=== PATIENT | female | born 1945 | race Caucasian/White ===

== ENCOUNTER 2023-11-12 01:22 | Emergency (ER) | payer MEDICARE, SELFPAY ==
--- NOTE | 2023-11-12 04:32 | DOWNTIME ---
There was a [employer] Downtime on 11/12/2023 from 0111 to 11/12/2023 at 0405. Downtime documentation of patient's care, including medication administrations, has been reconciled in the electronic record per guidelines. Refer to the
patient's paper chart under the miscellaneous tab to see printed paper medication records and downtime forms.
--- NOTE | 2023-11-12 04:34 | ED.GENMED ---
History of Present Illness
General
Chief Complaint: Chest Pain
Source: patient and spouse
Exam Limitations: none
Nursing documentation reviewed up to this point in time: agreed with
History of Present Illness
History of Present Illness:
79-year-old female with past medical history as documented presents to the emergency room for evaluation of chest pain. Patient reports onset of symptoms this evening and have been constant since that time. She reports 'pounding' pain lasts chest
that radiates under the left breast. No clear triggering or relieving factors noted. She denies any associated shortness of breath. Denies any nausea or vomiting. Denies any diaphoresis. No syncope or dizziness. Denies any recent illness. She
has had some swelling in her legs recently took a dose of her as needed Lasix this morning with improvement. She says that she has noticed that her blood pressure has been significantly elevated this evening as high as 200 systolic. For this
reason she took two extra doses of her propranolol 10 mg tablets (normally takes 10 mg twice daily, soraida took her normal dose +2 additional 10 mg tablets). She says that this did not significantly improve her blood pressure because she was
having some chest pain decided to come for evaluation. She follows with Dr. Mao for cardiology.
Past History
Past History
ED Past Medical History: HTN, Other (Sjogren's syndrome) and Other (chronic pain)
ED Past Surgical History: Appendectomy, Gynecological, Orthopedic and Urological
Social History
Tobacco: Non-smoker
Alcohol: None
Drug: None
Personal:
Living: with family
Review of Systems
Review of Systems
All Other Systems: ROS reviewed and negative except as documented in HPI and ROS
Constitutional: Denies fever or chills
EENT: Denies sore throat or runny nose
Respiratory: Denies cough or trouble breathing
Cardiac: Reports chest pain; Denies diaphoresis or palpitations
ABD/GI: Denies abdominal pain, nausea, vomiting or diarrhea
: Denies flank pain
Musculoskeletal: Denies neck pain or back pain
Neurological: Denies headache, weakness or numbness
Phy Exam
Physical Exam
Physical Exam:
General: Awake, alert, oriented x3; no acute distress
Head: Normocephalic, atraumatic
Eyes: Conjunctiva normal, sclera anicteric
Throat: Airway intact, handling secretions
Neck: Trachea midline, supple without meningismus
Lungs: Clear to auscultation bilaterally, no wheezing, rales, rhonchi
Heart: Regular rate and rhythm, no murmurs, gallops, or rubs
Abd: Soft, non distended, nontender
Neuro: Cranial nerves grossly intact, speech fluid
Skin: no rash
Extremities: No edema in extremities, equal pulses in all extremities
Scores
Heart Failure Risk
Heart Failure Risk Score: Not Applicable
Heart Score for Chest Pain Patients
STEMI patient?: No
History: Slightly or Non-Suspicious
ECG: Normal
Age: >/= 65 years
Risk Factors: >/= 3 Risk Factors or History of CAD
Troponin: </= Normal Limit
Heart Score for Chest Pain Patients: 4
Heart Score Risk: 20.3% MACE over next 6 weeks
Withdrawal Assessment of Alcohol
Withdrawal Assessment Completed?: Not applicable
Course
Orders/Labs/Results
Orders:
Orders
11/12/23 02:00
Complete Blood Count/With Diff Urgent
Comprehensive Metabolic Panel Urgent
NT-proBNP Urgent
Troponin I Urgent
11/12/23 04:38
Electrocardiogram (*1) Urgent
Reason for Study: Chest Pain
EKG- Treatment ONCE
11/12/23 05:08
CR Chest - 2 Views Urgent
Comment:
Reason For Exam: cp
11/12/23 05:12
Troponin I Urgent
Abnormal Lab Results
11/12/23
02:00
Absolute Neuts (auto) 7.2 H 10^3/uL
(1.4-6.5)
Lymphocytes % 20.1 L %
(20.5-51.1)
Glucose 109 H mg/dl
(70-99)
11/12/23 02:00
11/12/23 02:00
Vital Signs
Initial and Last Documented VS:
Initial Vital Signs
Pulse Resp BP Pulse Ox
55 16 144/72 97
11/12/23 06:02 11/12/23 06:02 11/12/23 06:02 11/12/23 06:02
Last Documented Vital Signs
Pulse Resp BP Pulse Ox
55 16 144/72 97
11/12/23 06:02 11/12/23 06:02 11/12/23 06:02 11/12/23 06:02
MDM/Problems Addressed
Differential Diagnosis Includes:
ACS, costochondritis, GERD, pericarditis, anxiety; clinical picture not consistent with PE or acute aortic syndrome in my judgment no further testing indicated for these diagnoses
MDM/Problems Addressed:
79-year-old female presents for evaluation of chest pain for the past few hours with associated high blood pressure. Vital signs significant for hypertension here otherwise normal. Exam as above. EKG shows no STEMI. Plan to place an IV check
labs including a CBC and a CMP, troponin. Will check chest x-ray. Will provide some nitroglycerin for hypertension and evaluate for improvement of her chest pain. Will monitor closely reassess after the above.
Initial labs reviewed: CBC and CMP unremarkable, troponin negative x 1. Will continue to monitor pending repeat troponin. Blood pressure improved with nitroglycerin, chest pain essentially unchanged.
Repeat troponin negative, chest x-ray reviewed by me no acute disease. Blood pressure normalized, patient well-appearing symptoms improved. No clear indication for admission at this point, I think patient is stable for discharge can follow-up with
her primary doctor as an outpatient for blood pressure recheck. She feels very comfortable this plan. Spoke about return precautions all questions answered.
Acute Exacerbation and/or Progression of Chronic Illness:
Acute exacerbation of chronic hypertension managed with nitroglycerin with normalization of blood pressure
Acute Exacerbation and/or Progression of Chronic Illness: HTN
*Radiology
Radiology exam reviewed: preliminary read by ED provider
*Pulse Oximetry
Patient hypoxic: no
*EKG
Interpreted by ED Provider?: Yes
Heart Rate: 70
Rate: normal
Rhythm: sinus
[place]: normal axis
Interval: normal interval
QRS Pattern: normal QRS
Ischemia: no ischemia
*Critical Care Note
Total Time (30-74mins, 75-104mins- exclusive of procedures): Not Applicable
Data Reviewed
Review of Other/Old Records Reveals: Labs and Records
Source: patient, records and spouse
ED Attending Note
-
Portions of this chart may have been created with voice recognition software.� Occasional wrong word or��sound alike� substitutions may have occurred due to the inherent limitations of voice recognition software.
Discharge Plan
Departure
Patient Disposition: Home (Routine Discharge)
Date of Disposition: 11/12/23
Time of Disposition: 06:25
Patient with high blood pressure during this ER visit?: No
Discharge Problem:
Chest pain, Hypertension
Instructions: Chest Pain CBC Follow Up, BLOOD PRESSURE
Prescriptions:
No Action
zolpidem 10 MG tablet
10 mg PO HS
Patient Comments:
03/21/2021: last filled 03/06/21, 30 tabs for 30 days from [facility]
propranolol 10 MG tablet
10 mg PO DAILYPRN PRN (Reason: tachycardia)
verapamil 120 MG tablet extended release
120 mg PO DAILY
simvastatin 10 MG tablet
10 mg PO HS
hydromorphone 2 MG tablet
2 mg PO BID
Patient Comments:
03/21/2021: last filled 02/28/21, 90 tabs for 15 days from [facility]
ascorbic acid (vitamin C) [Vitamin C] 500 MG tablet
1,000 mg PO DAILY
furosemide 20 MG tablet
20 mg PO .EVERYOTHERDAY PRN (Reason: leg swelling)
cholecalciferol (vitamin D3) 1,000 UNITS tablet
3,000 units PO DAILY
oxycodone [OxyContin] 10 MG tablet,oral only,ext.rel.12 hr
10 mg PO BID
Patient Comments:
03/21/2021: last filled 02/27/21, 90 tabs for 30 days from [facility]
cyanocobalamin (vitamin B-12) 1,000 MCG tablet
2,000 mcg PO DAILY
lorazepam 1 MG tablet
0.5 - 1 mg PO PRN PRN (Reason: anxiety)
Patient Comments:
03/21/2021: last filled 12/19/20, 60 tabs for 20 days from [facility]
aspirin 81 MG tablet,chewable
81 mg PO DAILY
lisinopril 20 MG tablet
20 mg PO DAILY
Synthroid
10 mcg PO DAILY
valacyclovir 500 mg Tablet
500 mg PO BID PRN (Reason: shingles )
ondansetron 4 mg tablet,disintegrating
4 mg PO Q8H PRN (Reason: nausea and vomiting) Qty: 7 0RF
prednisone 20 mg tablet
40 mg PO DAILY 4 Days Qty: 8 0RF
prednisone 10 mg tablets,dose pack
See Rx Instructions .ROUTE .COMPLEX Qty: 21 0RF
Rx Instructions:
orally per package directions
Referrals:
Ortega Mao MD [Active] - Call in 1-3 days for appt
Magdalena Watson DO [Family Provider] -
Activity Restrictions/Additional Instructions:
Thank you for visiting the Emergency Department at [facility].
1. Please schedule a follow up appointment as directed. Call first thing tomorrow morning to make an appointment.
2. If indicated, please take your medications as instructed and indicated on discharge paperwork.
3. If any of your symptoms do not improve, or persist, or become more severe within 6-12 hours, please return to the emergency department for further care.
4. Please return to the emergency department if you develop a headache, neck pain/stiffness, fever greater than 100.4F, chest pain, shortness of breath, persistent nausea, vomiting, slurred speech, difficulty walking, numbness/tingling, weakness,
signs of infection or any other symptoms that are worrisome to you.
Please call [phone] if you have any questions.
[2023-11-12 05:23] LABS: % Basophils 0.5 % (0-2); % Eosinophils 1.6 % (0-6); % Immature Granulocytes 0.3 % (0-0.5); % Lymphocytes 20.1 % (20.5-51.1); % Neutrophils 71.5 % (42.2-75.2); Absolute Basophils 0.1 10^3/uL (0-0.2); Absolute Eosinophils 0.2 10^3/uL (0-0.7); Absolute Monocytes 0.6 10^3/uL (0.1-0.6); Absolute Neutrophils 7.2 10^3/uL (1.4-6.5); Hematocrit 43.7 % (37.0-47.0); Mean Corp Hgb Conc. 34.3 g/dL (33.0-37.0); Mean Corpuscular Hgb 30.5 pg (27.0-31.0); Mean Corpuscular Volume 88.8 fL (81.0-99.0); Mean Platelet Volume 10.3 fL (7.4-10.4); Nucleated Red Blood Cells % 0 %; Platelet Count 246 10^3/uL (130-400); Red Blood Cell Count 4.92 10^6/uL (4.20-5.40); Red Cell Dist. Width 13.2 % (11.5-14.5)
[2023-11-12 05:26] LABS: ALT (SGPT) 15 U/L (0-35); AST (SGOT) 29 U/L (14-36); Albumin 4.6 g/dl (3.5-5.0); Alkaline Phosphatase 93 U/L (38-126); Blood Urea Nitrogen 8 mg/dl (7-17); Calcium 9.6 mg/dl (8.4-10.2); Carbon Dioxide 27 mmol/L (22-30); Chloride 102 mmol/L (98-107); Glucose 109 mg/dl (70-99); NT-proBNP 103 pg/ml; Potassium 3.8 mmol/L (3.5-5.1); Sodium 136 mmol/L (135-145); Total Bilirubin 0.8 mg/dl (0.2-1.3); Total Protein 7.1 g/dl (6.3-8.2); Troponin I < 0.012 ng/ml; eGFR > 60.00
[2023-11-12 05:53] LABS: Troponin I < 0.012 ng/ml
[2023-11-12 06:02] VITALS: BP 144/72
== END 2023-11-12 06:36 | disposition home or self-care (01) ==
LOC: EMR 01:22
PROVIDERS: EMERGENCY PHYSICIAN Emergency Medicine; FAMILY PHYSICIAN Family Medicine
DX: R07.89 Other chest pain (principal); I10 Essential (primary) hypertension
CPT/HCPCS: 99285; 71046; 80053; 83880; 84484; 85025; 93005

== ENCOUNTER 2023-11-18 17:06 | Emergency (ER) | payer MEDICARE, SELFPAY ==
[2023-11-18 17:11] VITALS: BP 178/96
--- NOTE | 2023-11-18 19:26 | ED.GENMED ---
History of Present Illness
General
Chief Complaint: Breathing Problem
Source: patient
Time Seen by Provider: 11/18/23 19:08
Travel History
Have you had any contact with someone who has COVID-19?: No
Do you have any symptoms of coronavirus? Fever > 100 degrees, chills, cough, shortness of breath, sore throat, loss of taste or smell, muscle aches, or headache?: No
History of Present Illness
History of Present Illness:
78-year-old female presents to the emergency room complaining of shortness of breath. Patient states she went to her family doctor's office today for evaluation of shortness of breath and cough. She was sent to the emergency because her doctor
'did not like how she sounds'. Patient admits she has not been using her breathing treatments because her blood pressure has been high. She is concerned that using her breathing treatments will increase her blood pressure. Patient states she was
here in the emergency room a week or so ago for elevated blood pressure. Patient states her cough is productive of thick clear sputum. She denies any fever.
Past History
Past History
ED Past Medical History: HTN, Other (Sjogren's syndrome) and Other (chronic pain)
ED Past Surgical History: Appendectomy, Gynecological, Orthopedic and Urological
Social History
Tobacco: Non-smoker
Alcohol: None
Drug: None
Personal:
Living: with family
Phy Exam
Physical Exam
Physical Exam:
General: Awake, Alert, Oriented X3. No acute distress.
Vitals: unremarkable
Head: Atraumatic
Eyes: Pupils equal, EOMI
Throat: Airway intact, no exudates
Neck: Trachea midline
Lungs: Decreased breath sounds bilaterally, expiratory wheeze
Heart: Regular rate, no murmurs
Abd: Soft, Nontender, No pulsatile mass
Neuro: Nonfocal
Skin: Warm, dry, no rash
Extremities: pulses equal b/l, trace edema
Scores
Heart Failure Risk
Heart Failure Risk Score: Not Applicable
Course
Orders/Labs/Results
Orders:
Orders
11/18/23 19:25
Ipratropium Nebs [Atrovent Nebules] 1 mg INH R NOW STA
Levalbuterol [Xopenex 1.25 mg Inhalant Solution] 1.25 mg INH R NOW STA
Vital Signs
Initial and Last Documented VS:
Initial Vital Signs
Temp Pulse Resp BP Pulse Ox
98.0 F 71 18 178/96 98
11/18/23 17:11 11/18/23 17:11 11/18/23 17:11 11/18/23 17:11 11/18/23 17:11
Last Documented Vital Signs
Temp Pulse Resp BP Pulse Ox
98.0 F 71 18 178/96 98
11/18/23 17:11 11/18/23 17:11 11/18/23 17:11 11/18/23 17:11 11/18/23 17:11
MDM/Problems Addressed
Differential Diagnosis Includes:
COPD with exacerbation, acute bronchitis, pneumonia
MDM/Problems Addressed:
Patient had significant improvement with Xopenex and Atrovent nebs. She had a chest x-ray recently which did not show any infiltrate. She is afebrile. Given the fact she feels much better with inhaled bronchodilators suggest this is more of a
bronchitis with bronchospasm. Patient has not been using her inhalers because of fear for elevation of her blood pressure. Will discharge the patient with instructions to continue using her nebulized medications. Will cover with doxycycline for
potential acute bronchitis.
Chronic conditions affecting care: COPD
Acute Exacerbation and/or Progression of Chronic Illness: COPD
*Pulse Oximetry
Patient hypoxic: no
*Critical Care Note
Total Time (30-74mins, 75-104mins- exclusive of procedures): Not Applicable
ED Attending Note
-
Portions of this chart may have been created with voice recognition software.� Occasional wrong word or��sound alike� substitutions may have occurred due to the inherent limitations of voice recognition software.
Discharge Plan
Departure
Patient Disposition: Home (Routine Discharge)
Date of Disposition: 11/18/23
Time of Disposition: 22:08
Patient with high blood pressure during this ER visit?: Yes
Condition: Good
Discharge Problem:
Acute bronchitis
Instructions: Bronchitis, Adult ED
Prescriptions:
New
doxycycline monohydrate 100 mg capsule
100 mg PO Q12H 7 Days Qty: 14 0RF
No Action
zolpidem 10 MG tablet
10 mg PO HS
Patient Comments:
03/21/2021: last filled 03/06/21, 30 tabs for 30 days from [facility]
propranolol 10 MG tablet
10 mg PO DAILYPRN PRN (Reason: tachycardia)
verapamil 120 MG tablet extended release
120 mg PO DAILY
simvastatin 10 MG tablet
10 mg PO HS
hydromorphone 2 MG tablet
2 mg PO BID
Patient Comments:
03/21/2021: last filled 02/28/21, 90 tabs for 15 days from [facility]
ascorbic acid (vitamin C) [Vitamin C] 500 MG tablet
1,000 mg PO DAILY
furosemide 20 MG tablet
20 mg PO .EVERYOTHERDAY PRN (Reason: leg swelling)
cholecalciferol (vitamin D3) 1,000 UNITS tablet
3,000 units PO DAILY
oxycodone [OxyContin] 10 MG tablet,oral only,ext.rel.12 hr
10 mg PO BID
Patient Comments:
03/21/2021: last filled 02/27/21, 90 tabs for 30 days from [facility]
cyanocobalamin (vitamin B-12) 1,000 MCG tablet
2,000 mcg PO DAILY
lorazepam 1 MG tablet
0.5 - 1 mg PO PRN PRN (Reason: anxiety)
Patient Comments:
03/21/2021: last filled 12/19/20, 60 tabs for 20 days from [facility]
aspirin 81 MG tablet,chewable
81 mg PO DAILY
lisinopril 20 MG tablet
20 mg PO DAILY
Synthroid
10 mcg PO DAILY
valacyclovir 500 mg Tablet
500 mg PO BID PRN (Reason: shingles )
ondansetron 4 mg tablet,disintegrating
4 mg PO Q8H PRN (Reason: nausea and vomiting) Qty: 7 0RF
prednisone 20 mg tablet
40 mg PO DAILY 4 Days Qty: 8 0RF
prednisone 10 mg tablets,dose pack
See Rx Instructions .ROUTE .COMPLEX Qty: 21 0RF
Rx Instructions:
orally per package directions
Interventions
Interventions:
*Risk Screen - Suicide Last Done: 11/18/23 20:39
*General Assessment Last Done: 11/18/23 17:11
*Neglect/Abuse Screening Last Done: 11/18/23 20:38
ED- Fall Risk Assessment Last Done: 11/18/23 22:40
*ED COVID-19 Vaccine History Last Done: 11/18/23 17:11
*Nursing Disposition Last Done: 11/18/23 22:40
ED- Cardiac Assessment Last Done: 11/18/23 19:37
ED- Pulmonary Assessment Last Done: 11/18/23 19:37
Discharge Date and Time
Discharge Date/Time: 11/18/23 22:40
[2023-11-18] MEDS: ATROVENT NEBULES 1 MG INH (19:39)
[2023-11-18] MEDS: XOPENEX 1.25 MG INHALANT SOLUTION INH (19:40)
== END 2023-11-18 22:40 | disposition home or self-care (01) ==
LOC: EMR 17:06
PROVIDERS: EMERGENCY PHYSICIAN Emergency Medicine; FAMILY PHYSICIAN Family Medicine
DX: J20.9 Acute bronchitis, unspecified (principal); J44.89 Other specified chronic obstructive pulmonary disease; I10 Essential (primary) hypertension
CPT/HCPCS: 99284; 94640

== ENCOUNTER 2023-11-29 00:14 | Emergency (ER) | payer MEDICARE, SELFPAY ==
[2023-11-29 00:24] VITALS: BP 181/91
--- NOTE | 2023-11-29 01:00 | ED.GENMED ---
History of Present Illness
General
Chief Complaint: Abdominal Symptoms
Time Seen by Provider: 11/29/23 00:34
Travel History
Have you had any contact with someone who has COVID-19?: No
Do you have any symptoms of coronavirus? Fever > 100 degrees, chills, cough, shortness of breath, sore throat, loss of taste or smell, muscle aches, or headache?: No
History of Present Illness
History of Present Illness:
78-year-old female with history of Sjogren's syndrome, hypertension, and hyperlipidemia presents to the emergency department for evaluation of sudden onset nausea vomiting and diarrhea beginning earlier this evening. They ate at a restaurant
earlier today and she is concerned for food poisoning. Denies any abdominal pain. Was not able to tolerate her nighttime medications. No fevers or chills
Past History
Past History
ED Past Medical History: HTN, Other (Sjogren's syndrome) and Other (chronic pain)
ED Past Surgical History: Appendectomy, Gynecological, Orthopedic and Urological
Social History
Tobacco: Non-smoker
Alcohol: None
Drug: None
Personal:
Living: with family
Review of Systems
Review of Systems
Allergies reviewed?: Yes
All Other Systems: ROS reviewed and negative except as documented in HPI and ROS
Phy Exam
Physical Exam
Physical Exam:
GEN: Well appearing, NAD, WDWN
Eyes: PERRLA, EOMs intact, no scleral icterus
HENT: NCAT, oral mucosa moist
Lungs: CTAB, no wheezes, rales, rhonchi, normal chest wall excursion
Cardiac: RRR, no M/R/G, no peripheral edema. Radial pulses 2+ bilat
Abdomen: S, NT, ND, NABS, no masses or hepatosplenomegaly
Neuro: AO x 3
MSK: No gross deformity or ecchymosis.
Skin: No rashes, petechiae. Normal color, no pallor or jaundice.
Psych: Calm, cooperative, proper hygiene
Course
Orders/Labs/Results
Orders:
Orders
11/29/23 00:53
0.9% Sodium Chloride 1000 ml [Nss] 1,000 ml IV BOLUS
Ondansetron Injectable [Zofran] 4 mg IV NOW STA
11/29/23 01:16
Urinalysis Reflex To Culture Urgent
Date Specimen was Collected: 11/29/23
Time Specimen was Collected: 01:14
Urine Microscopic Reflex Cult Urgent
Urine Culture Urgent
SUNNY Source: U
Specimen Description:
Date Specimen was Collected: 11/29/23
Time Specimen was Collected: 01:14
11/29/23 01:23
Complete Blood Count/With Diff Urgent
Comprehensive Metabolic Panel Urgent
Lipase Urgent
Abnormal Lab Results
11/29/23 11/29/23
01:16 01:23
WBC 14.0 H 10^3/uL
(4.8-10.8)
Absolute Neuts (auto) 12.7 H 10^3/uL
(1.4-6.5)
Absolute Lymphs (auto) 0.3 L 10^3/uL
(1.2-3.4)
Absolute Monos (auto) 0.7 H 10^3/uL
(0.1-0.6)
Neutrophils % 91.4 H %
(42.2-75.2)
Lymphocytes % 2.0 L %
(20.5-51.1)
Glucose 138 H mg/dl
(70-99)
Urine Ketones 2+ A
(Negative)
Ur Occult Blood Reflex Trace A
(Negative)
Leukocyte Esterase Rfl 1+ A
(Negative)
Urine RBC 11-15 A /HPF
(0-2)
Urine WBC (Reflex) 30-40 A /HPF
(0-5)
Urine Bacteria (Reflex) Many A
(Negative)
11/29/23 01:23
11/29/23 01:23
Vital Signs
Initial and Last Documented VS:
Initial Vital Signs
Temp Pulse Resp BP Pulse Ox
99.7 F 80 18 181/91 98
11/29/23 00:24 11/29/23 00:24 11/29/23 00:24 11/29/23 00:24 11/29/23 00:24
Last Documented Vital Signs
Temp Pulse Resp BP Pulse Ox
99.7 F 83 16 160/77 97
11/29/23 00:24 11/29/23 02:00 11/29/23 01:30 11/29/23 02:00 11/29/23 02:00
MDM/Problems Addressed
MDM/Problems Addressed:
Clinical findings consistent with acute gastroenteritis versus foodborne gastroenteritis. Patient improved with IV fluids and antiemetics. Labs are reassuring. Mild leukocytosis likely reactive and due to hypovolemia. She has no reproducible
abdominal tenderness warranting imaging. Discussed supportive care and return parameters
*Critical Care Note
Total Time (30-74mins, 75-104mins- exclusive of procedures): Not Applicable
ED Attending Note
-
Portions of this chart may have been created with voice recognition software.� Occasional wrong word or��sound alike� substitutions may have occurred due to the inherent limitations of voice recognition software.
Discharge Plan
Departure
Patient Disposition: Home (Routine Discharge)
Date of Disposition: 11/29/23
Time of Disposition: 02:59
Patient with high blood pressure during this ER visit?: Yes
Discharge Problem:
Gastroenteritis
Instructions: Nausea and Vomiting, Adult (DC)
Prescriptions:
New
ondansetron 4 mg tablet,disintegrating
4 mg PO TIDPRN PRN (Reason: nausea/vomiting) Qty: 10 0RF
No Action
zolpidem 10 MG tablet
10 mg PO HS
verapamil 120 MG tablet extended release
120 mg PO DAILY
simvastatin 10 MG tablet
10 mg PO HS
hydromorphone 2 MG tablet
2 mg PO BID
ascorbic acid (vitamin C) [Vitamin C] 500 MG tablet
1,000 mg PO DAILY
furosemide 20 MG tablet
20 mg PO Q48H
cholecalciferol (vitamin D3) 1,000 UNITS tablet
3,000 units PO DAILY
oxycodone [OxyContin] 10 MG tablet,oral only,ext.rel.12 hr
10 mg PO BID
cyanocobalamin (vitamin B-12) 1,000 MCG tablet
2,000 mcg PO DAILY
lorazepam 1 MG tablet
0.5 - 1 mg PO PRN PRN (Reason: anxiety)
Patient Comments:
03/21/2021: last filled 12/19/20, 60 tabs for 20 days from [facility]
aspirin 81 MG tablet,chewable
81 mg PO DAILY
lisinopril 20 MG tablet
40 mg PO DAILY
valacyclovir 500 mg Tablet
500 mg PO BID PRN (Reason: shingles )
doxycycline monohydrate 100 mg capsule
100 mg PO Q12H 7 Days Qty: 14 0RF
levothyroxine [Synthroid] 25 mcg Tablet
25 mcg PO DAILY
propranolol 10 mg Tablet
10 mg PO TIDPRN PRN (Reason: fast heart rate)
Patient Comments:
pt can take a fourth dose if needed
omeprazole 40 mg Capsule,Delayed Release(Dr/Ec)
40 mg PO DAILY
Referrals:
Magdalena Watson DO [Family Provider] -
Interventions
Interventions:
*Risk Screen - Suicide Last Done: 11/29/23 00:28
*General Assessment Last Done: 11/29/23 00:28
*Neglect/Abuse Screening Last Done: 11/29/23 00:28
*ED COVID-19 Vaccine History Last Done: 11/29/23 00:34
[id number] Assessment Last Done: 11/29/23 01:44
[2023-11-29] MEDS: NSS 1000 IV (01:24)
[2023-11-29] MEDS: ZOFRAN 4 MG IV (01:25)
[2023-11-29 01:27] VITALS: BMI 26.0
[2023-11-29 01:30] VITALS: BP 157/81
[2023-11-29 01:36] LABS: % Basophils 0.4 % (0-2); % Eosinophils 1.1 % (0-6); % Immature Granulocytes 0.3 % (0-0.5); % Monocytes 4.8 % (1.7-9.3); % Neutrophils 91.4 % (42.2-75.2); Absolute Basophils 0.1 10^3/uL (0-0.2); Absolute Eosinophils 0.2 10^3/uL (0-0.7); Absolute Lymphocytes 0.3 10^3/uL (1.2-3.4); Absolute Monocytes 0.7 10^3/uL (0.1-0.6); Absolute Neutrophils 12.7 10^3/uL (1.4-6.5); Hemoglobin 15.4 g/dL (12.0-16.0); Mean Corpuscular Hgb 30.2 pg (27.0-31.0); Mean Corpuscular Volume 86.3 fL (81.0-99.0); Mean Platelet Volume 9.3 fL (7.4-10.4); Nucleated Red Blood Cells % 0 %; Platelet Count 265 10^3/uL (130-400); Red Cell Dist. Width 13.1 % (11.5-14.5)
[2023-11-29 01:43] LABS: Urine Albumin Trace (Neg - Trace); Urine Bilirubin Negative (Negative); Urine Color Yellow; Urine Glucose Negative (Negative); Urine Ketone 2+ (Negative); Urine Leukocyte 1+ (Negative); Urine Nitrite Negative (Negative); Urine Occult Blood Trace (Negative); Urine Urobilinogen Negative (Neg - 1+)
[2023-11-29 01:45] LABS: Urine Character Slightly Cloudy (Clear)
[2023-11-29 01:56] LABS: ALT (SGPT) 14 U/L (0-35); AST (SGOT) 26 U/L (14-36); Albumin 4.7 g/dl (3.5-5.0); Alkaline Phosphatase 93 U/L (38-126); Blood Urea Nitrogen 10 mg/dl (7-17); Carbon Dioxide 26 mmol/L (22-30); Chloride 103 mmol/L (98-107); Estimated Creatinine Clearance 61 ml/min; Glucose 138 mg/dl (70-99); Lipase 58 U/L (23-300); Potassium 4.3 mmol/L (3.5-5.1); Sodium 136 mmol/L (135-145); eGFR > 60.00
[2023-11-29 01:59] LABS: Urine Squamous Cell >30 /LPF (Few)
[2023-11-29 02:00] VITALS: BP 160/77
[2023-11-29 02:00] LABS: Urine Amorphous Seen; Urine Calcium Oxalate Crystals Seen
[2023-11-29 02:02] LABS: Urine Bacteria Many (Negative); Urine White Cell 30-40 /HPF (0-5)
[2023-11-29 02:03] LABS: Urine Mucus Moderate
== END 2023-11-29 03:15 | disposition home or self-care (01) ==
LOC: EMR 00:14
PROVIDERS: Physician Assistant; EMERGENCY PHYSICIAN Emergency Medicine; FAMILY PHYSICIAN Family Medicine
DX: K52.9 Noninfective gastroenteritis and colitis, unspecified (principal); I10 Essential (primary) hypertension; M35.00 Sjogren syndrome, unspecified; E78.5 Hyperlipidemia, unspecified; G89.29 Other chronic pain; Z88.1 Allergy status to other antibiotic agents; Z88.0 Allergy status to penicillin; Z88.2 Allergy status to sulfonamides; Z88.8 Allergy status to other drugs, medicaments and biological substances; Z79.82 Long term (current) use of aspirin
CPT/HCPCS: 99284; 96374; 96361; 80053; 81003; 81015; 83690; 85025; 87045; 87046; 87077; 87086; 87427

== ENCOUNTER → 2024-01-07 11:49 | Outpatient (REF) | payer MEDICARE, SELFPAY | LOC: DHCBC/DCA 11:49 | PROVIDERS: ATTENDING PHYSICIAN Internal Medicine; FAMILY PHYSICIAN Family Medicine | DX: R07.9 Chest pain, unspecified (principal) | CPT/HCPCS: 78452; 93017; A9500; J2785 ==

== ENCOUNTER → 2024-05-10 13:30 | Outpatient (REF) | payer MEDICARE, SELFPAY | LOC: HWRAD 13:30 | PROVIDERS: ATTENDING PHYSICIAN Family Medicine | DX: R63.4 Abnormal weight loss (principal) | CPT/HCPCS: 71250; 74176 ==

== ENCOUNTER → 2024-06-11 14:28 | Outpatient (REF) | payer MEDICARE, SELFPAY | LOC: WDC 14:28 | PROVIDERS: ATTENDING PHYSICIAN Surgery; FAMILY PHYSICIAN Family Medicine | DX: N63.21 Unspecified lump in the left breast, upper outer quadrant (principal) | CPT/HCPCS: 76642 ==

== ENCOUNTER → 2024-06-21 15:38 | Outpatient (REF) | payer MEDICARE, SELFPAY | LOC: RAD 15:38 | PROVIDERS: ATTENDING PHYSICIAN Family Medicine | DX: M79.89 Other specified soft tissue disorders (principal) | CPT/HCPCS: 93971 ==

== ENCOUNTER → 2024-07-08 14:57 | Outpatient (REF) | payer MEDICARE, SELFPAY | LOC: HWRCS 14:57 | PROVIDERS: ATTENDING PHYSICIAN Internal Medicine; FAMILY PHYSICIAN Family Medicine | DX: R55 Syncope and collapse (principal) | CPT/HCPCS: 93306 ==

== ENCOUNTER 2024-10-20 03:59 | Emergency (ER) | payer MEDICARE, SELFPAY ==
[2024-10-20 04:02] VITALS: BP 194/94
[2024-10-20 04:38] LABS: % Basophils 0.8 % (0-2); % Eosinophils 2.5 % (0-6); % Immature Granulocytes 0.3 % (0-0.5); % Monocytes 9.6 % (1.7-9.3); % Neutrophils 51.8 % (42.2-75.2); Absolute Basophils 0.1 10^3/uL (0-0.2); Absolute Eosinophils 0.2 10^3/uL (0-0.7); Absolute Lymphocytes 2.6 10^3/uL (1.2-3.4); Absolute Monocytes 0.7 10^3/uL (0.1-0.6); Absolute Neutrophils 3.8 10^3/uL (1.4-6.5); Hematocrit 41.2 % (37.0-47.0); Hemoglobin 13.6 g/dL (12.0-16.0); Mean Corpuscular Hgb 29.6 pg (27.0-31.0); Mean Corpuscular Volume 89.6 fL (81.0-99.0); Mean Platelet Volume 8.9 fL (7.4-10.4); Nucleated Red Blood Cells % 0 %; Platelet Count 253 10^3/uL (130-400); Red Cell Dist. Width 13.6 % (11.5-14.5); White Blood Cell Count 7.3 10^3/uL (4.8-10.8)
[2024-10-20 04:45] VITALS: BP 167/72
[2024-10-20 04:53] LABS: ALT (SGPT) 18 U/L (0-35); AST (SGOT) 26 U/L (14-36); Albumin 4.6 g/dl (3.5-5.0); Alkaline Phosphatase 79 U/L (38-126); Blood Urea Nitrogen 9 mg/dl (7-17); Calcium 9.6 mg/dl (8.4-10.2); Carbon Dioxide 27 mmol/L (22-30); Chloride 99 mmol/L (98-107); Glucose 101 mg/dl (70-99); Potassium 4.4 mmol/L (3.5-5.1); Sodium 136 mmol/L (135-145); Total Bilirubin 0.6 mg/dl (0.2-1.3); Total Protein 6.8 g/dl (6.3-8.2); eGFR > 60.00
[2024-10-20 05:00] VITALS: BP 152/78
[2024-10-20 05:05] LABS: Troponin I < 0.012 ng/ml
[2024-10-20 06:00] VITALS: BP 135/59
[2024-10-20 06:58] VITALS: BMI 25.7
--- NOTE | 2024-10-20 07:03 | ED.GENMED ---
History of Present Illness
General
Chief Complaint: Blood Pressure Problem
Source: patient and spouse
Time Seen by Provider: 10/20/24 06:35
History of Present Illness
History of Present Illness:
79-year-old female presents to the emergency room complaining of elevated blood pressure. Patient knew her blood pressure was elevated because she was feeling palpitations, headache. She took an additional propranolol. Patient also has frequent
epistaxis which she feels might be related to her blood pressure. No chest pain at the time of my evaluation. No complaints at this time.
Past History
Past History
ED Past Medical History: HTN, Other (Sjogren's syndrome) and Other (chronic pain)
ED Past Surgical History: Appendectomy, Gynecological, Orthopedic and Urological
Social History
Tobacco: Non-smoker
Alcohol: None
Drug: None
Personal:
Living: with family
Phy Exam
Physical Exam
Physical Exam:
General: Awake, Alert, Oriented X3. No acute distress.
Vitals: Initially hypertensive but blood pressure normalized to 130s over 80s
Head: Atraumatic
Eyes: Pupils equal, EOMI
Throat: Airway intact, no exudates
Neck: Trachea midline
Lungs: Clear and equal b/l
Heart: Regular rate, no murmurs
Abd: Soft, Nontender, No pulsatile mass
Neuro: Nonfocal
Skin: Warm, dry, no rash
Extremities: pulses equal b/l, 1+ edema
Course
Orders/Labs/Results
Orders:
Orders
10/20/24 04:05
ECG [Electrocardiogram (*1)] Urgent
Reason for Study: Hypertension, Benign
10/20/24 04:06
EKG- Treatment ONCE
10/20/24 04:20
Complete Blood Count/With Diff Urgent
Comprehensive Metabolic Panel Urgent
Troponin I Urgent
Abnormal Lab Results
10/20/24
04:20
Absolute Monos (auto) 0.7 H 10^3/uL
(0.1-0.6)
Monocytes % 9.6 H %
(1.7-9.3)
Glucose 101 H mg/dl
(70-99)
10/20/24 04:20
10/20/24 04:20
Vital Signs
Initial and Last Documented VS:
Initial Vital Signs
Temp Pulse Resp BP Pulse Ox
97.8 F 78 20 194/94 98
10/20/24 04:02 10/20/24 04:02 10/20/24 04:02 10/20/24 04:02 10/20/24 04:02
Last Documented Vital Signs
Temp Pulse Resp BP Pulse Ox
97.8 F 56 13 135/59 94
10/20/24 04:02 10/20/24 06:45 10/20/24 06:45 10/20/24 06:00 10/20/24 05:00
MDM/Problems Addressed
Differential Diagnosis Includes:
Hypertensive emergency, uncontrolled hypertension, electrolyte abnormality, renal failure
MDM/Problems Addressed:
Patient presents for elevated blood pressure. Her blood pressure normalized without intervention. Labs were unremarkable. Patient has had previous visits for the same. Reviewed the patient's notes in [facility]. Patient had been on low-dose Imdur but
this resulted in symptomatic hypotension. Patient's blood pressure may not have ideal control but there is no evidence for hypertensive emergency. 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
various medications we will defer any medication changes to them. Patient stable for discharge home.
*Pulse Oximetry
Patient hypoxic: no
*EKG
Interpreted by ED Provider?: Yes
Heart Rate: 76
Rate: normal
Rhythm: sinus
[place]: normal axis
Interval: normal interval
QRS Pattern: normal QRS
Ischemia: no ischemia
*Direct Response Consultant Interpretation
Rate: normal
Interpretation: normal
Heart Rate: 76
Rhythm: sinus
*Critical Care Note
Total Time (30-74mins, 75-104mins- exclusive of procedures): Not Applicable
ED Attending Note
-
Portions of this chart may have been created with voice recognition software.� Occasional wrong word or��sound alike� substitutions may have occurred due to the inherent limitations of voice recognition software.
Discharge Plan
Departure
Patient Disposition: Home (Routine Discharge)
Date of Disposition: 10/20/24
Time of Disposition: 07:07
Patient with high blood pressure during this ER visit?: Yes
Discharge Problem:
Hypertension, Palpitations
Instructions: High Blood Pressure (DC)
Prescriptions:
No Action
zolpidem 10 MG tablet
10 mg PO HS
verapamil 120 MG tablet extended release
120 mg PO DAILY
simvastatin 10 MG tablet
10 mg PO HS
hydromorphone 2 MG tablet
2 mg PO BID
ascorbic acid (vitamin C) [Vitamin C] 500 MG tablet
1,000 mg PO DAILY
furosemide 20 MG tablet
20 mg PO Q48H
cholecalciferol (vitamin D3) 1,000 UNITS tablet
3,000 units PO DAILY
oxycodone [OxyContin] 10 MG tablet,oral only,ext.rel.12 hr
10 mg PO BID
cyanocobalamin (vitamin B-12) 1,000 MCG tablet
2,000 mcg PO DAILY
lorazepam 1 MG tablet
0.5 - 1 mg PO PRN PRN (Reason: anxiety)
Patient Comments:
03/21/2021: last filled 12/19/20, 60 tabs for 20 days from [facility]
aspirin 81 MG tablet,chewable
81 mg PO DAILY
lisinopril 20 MG tablet
40 mg PO DAILY
valacyclovir 500 mg Tablet
500 mg PO BID PRN (Reason: shingles )
doxycycline monohydrate 100 mg capsule
100 mg PO Q12H 7 Days Qty: 14 0RF
levothyroxine [Synthroid] 25 mcg Tablet
25 mcg PO DAILY
propranolol 10 mg Tablet
10 mg PO TIDPRN PRN (Reason: fast heart rate)
Patient Comments:
pt can take a fourth dose if needed
omeprazole 40 mg Capsule,Delayed Release(Dr/Ec)
40 mg PO DAILY
ondansetron 4 mg tablet,disintegrating
4 mg PO TIDPRN PRN (Reason: nausea/vomiting) Qty: 10 0RF
Referrals:
Magdalena Watson DO [Family Provider] -
Activity Restrictions/Additional Instructions:
Please follow-up with Dr. Duval
Interventions
Interventions:
*Risk Screen - Suicide Last Done: 10/20/24 04:02
*General Assessment Last Done: 10/20/24 06:59
*Neglect/Abuse Screening Last Done: 10/20/24 04:02
*ED COVID-19 Vaccine History Last Done: 10/20/24 06:57
ED- Cardiac Assessment Last Done: 10/20/24 04:42
ED- Neurological Assessment Last Done: 10/20/24 05:00
ED- Pulmonary Assessment Last Done: 10/20/24 05:00
Discharge Date and Time
Print Language: MONGOLIAN
[2024-10-20 07:22] VITALS: BP 135/59
== END 2024-10-20 07:34 | disposition home or self-care (01) ==
LOC: EMR 03:59
PROVIDERS: Student in an Organized Health Care Education/Training Program; EMERGENCY PHYSICIAN Emergency Medicine; FAMILY PHYSICIAN Family Medicine
DX: I10 Essential (primary) hypertension (principal); R00.2 Palpitations; G89.29 Other chronic pain; M35.00 Sjogren syndrome, unspecified; Z90.49 Acquired absence of other specified parts of digestive tract; Z79.899 Other long term (current) drug therapy
CPT/HCPCS: 99284; 80053; 84484; 85025; 93005

== ENCOUNTER → 2024-12-30 15:38 | Outpatient (REF) | payer MEDICARE, SELFPAY | LOC: HWRAD 15:38 | PROVIDERS: ATTENDING PHYSICIAN Family Medicine | DX: R07.81 Pleurodynia (principal); R05.9 Cough, unspecified | CPT/HCPCS: 71101 ==

== ENCOUNTER → 2025-05-10 12:35 | Outpatient (REF) | payer MEDICARE, SELFPAY | LOC: HWRAD 12:35 | PROVIDERS: ATTENDING PHYSICIAN Family Medicine | DX: R07.9 Chest pain, unspecified (principal) | CPT/HCPCS: 71250 ==